=== PATIENT | male | born 1945 | race Caucasian/White ===

== ENCOUNTER 2024-11-16 19:50 | Observation (INO) | payer OTHER, SELFPAY ==
[2024-11-16] VITALS (15 sets, daily range): BP systolic 125–165; BP diastolic 69–96; BMI 26.0
[2024-11-16 09:23] LABS: Hematocrit 39.0 % (39.0-52.0); Hemoglobin 12.9 g/dL (13.0-18.0); Mean Corp Hgb Conc. 33.1 g/dL (33.0-37.0); Mean Corpuscular Volume 95.6 fL (80.0-94.0); Nucleated Red Blood Cells % 0 % (-); Platelet Count 184 10^3/uL (130-400); Red Cell Dist. Width 12.3 % (11.5-14.5)
[2024-11-16 09:49] LABS: Troponin I < 0.012 ng/ml
[2024-11-16 10:03] LABS: ALT (SGPT) 16 U/L (0-50); AST (SGOT) 19 U/L (17-59); Albumin 4.6 g/dl (3.5-5.0); Alkaline Phosphatase 71 U/L (38-126); Blood Urea Nitrogen 22 mg/dl (9-20); Calcium 10.3 mg/dl (8.4-10.2); Carbon Dioxide 27 mmol/L (22-30); Chloride 100 mmol/L (98-107); Glucose 159 mg/dl (70-99); Potassium 4.7 mmol/L (3.5-5.1); Sodium 135 mmol/L (135-145); Total Protein 7.1 g/dl (6.3-8.2); eGFR 43.56
--- NOTE | 2024-11-16 10:59 | ED.GENMED ---
History of Present Illness
<Nimco Joy DO, Resident - Last Filed: 11/17/24 06:01>
General
Chief Complaint: Chest Pain
Source: patient
Time Seen by Provider: 11/16/24 10:10
History of Present Illness
History of Present Illness:
Patient is a 78-year-old male with past medical history of kidney transplant 2014, CABG x 2 in July 2022, pericarditis about 4 years ago, hypertension hyperlipidemia and diabetes presenting with midsternal chest pain. Patient said he had abdominal
pain that started last night and and when he woke up this morning it was radiating to his chest. Patient rated the pain a 9 out of 10 on the pain scale and stated it was associated with some shortness of breath and pain on inspiration. Patient
says that he has been gassy and burping, which alleviated most of the pain. He now rates it a 2 out of 10 pain.
Past History
<Nimco Joy DO, Resident - Last Filed: 11/17/24 06:01>
Past History
ED Past Medical History: CVA (Negative for any weakness 2011), HTN, Hypercholesterolemia, NIDDM and Other (Factor V, GI bleeding,)
ED Past Surgical History: Appendectomy, Bowel resection (Colon resection for Polyps), Cholecystectomy and Other (Renal transplant, Lipoma removed from back, Bilateral nephrectomy for CA, Pancreatectomy,, Prostatectomy,)
Social History
Tobacco: Former smoker
Alcohol: Occasional
Drug: None
Personal:
Living: alone
Employment: Employed
Family History
Family History: Other (Noncontributory)
Review of Systems
<Nimco Joy DO, Resident - Last Filed: 11/17/24 06:01>
Review of Systems
Allergies reviewed?: Yes
Constitutional: Reports chills
EENT: Reports no symptoms
Respiratory: Reports no symptoms
Cardiac: Reports chest pain
ABD/GI: Reports abdominal pain
: Reports no symptoms
Musculoskeletal: Reports no symptoms
Skin: Reports no symptoms
Neurological: Reports no symptoms
Endocrine: Reports no symptoms
Hematologic/Lymphatic: Reports no symptoms
Psychiatric: Reports no symptoms
Phy Exam
<Nimco Joy DO, Resident - Last Filed: 11/17/24 06:01>
General Physical Exam
General Presentation: well appearing and no apparent distress
General Skin: cool
General Habitus: normal
General Mental: alert
Cardiovascular Exam
Cardiovascular Exam: regular rate/rhythm
Heart Sounds: normal
Pulmonary Exam
Pulmonary Exam: lungs clear and no respiratory distress
Gastrointestinal Exam
Gastrointestinal Exam: normal bowel sounds, non tender and soft
Neurological Exam
Neurological Exam: alert and oriented x3
Psychiatric Exam
Psychiatric Exam: normal mood/affect
Scores
<Nimco Joy DO, Resident - Last Filed: 11/17/24 06:01>
Heart Score for Chest Pain Patients
STEMI patient?: Not applicable
Course
<Nimco Joy DO, Resident - Last Filed: 11/17/24 06:01>
Orders/Labs/Results
Orders:
Orders
11/16/24 08:56
Electrocardiogram (*1) Urgent
Reason for Study: Chest Pain
11/16/24 08:57
EKG- Treatment ONCE
11/16/24 09:10
Complete Blood Count/With Diff Urgent
Comprehensive Metabolic Panel Urgent
Lipase Urgent
Comment: ADD ON
Troponin I Urgent
11/16/24 10:43
Add On- LAB Urgent
Tests Added?: lipase
11/16/24 11:07
EKG- Treatment ONCE
11/16/24 12:00
EKG- Treatment ONCE
11/16/24 12:01
Troponin I Urgent
11/16/24 12:04
EKG [Electrocardiogram (*1)] Urgent
Reason for Study: Chest Pain
EKG- Treatment ONCE
11/16/24 12:10
0.9% Sodium Chloride 1000 ml [Nss] 1,000 ml IV BOLUS
11/16/24 12:39
CT Abd/pel Without Iv Or Oral Urgent
Comment:
Reason For Exam: elevated lipase, hx kidney tx
11/16/24 Dinner
NPO
Allow oral meds: Yes
Allow clear liquids: Sips of Clears
NPO with Ice Chips: Yes
11/16/24 19:08
Admit/Transfer Patient As Directed
Co-Sign Provider:
Level of Care: Observation services
Assign to:: Medical/Surgical
Physician / Group: Dr. Arsh Chaudhary/Hospitalists
Diagnosis: Acute Pancreatitis
11/16/24 19:11
Code Status As Directed
Resuscitation Status: Full Code
11/16/24 19:18
Accucheck [Bedside Glucose Monitoring] As Directed
Frequency: Q6H
11/16/24 19:20
GASTROINTESTINAL CONSULT Routine
Consulting Provider: Valentine Quintanilla
Was physician already notified: Yes
Reason for consult: Acute Pancreatitis. H/o Whipple Surgery
11/16/24 19:43
0.9% Sodium Chloride 1000 ml [Nss] 1,000 ml IV 150 mls/hr
11/16/24 20:50
Atorvastatin [Lipitor] 20 mg PO QPM
Bisacodyl [Dulcolax] 10 mg RECTAL [id number] PRN
Carvedilol [Coreg] 12.5 mg PO BID
Docusate W/Senna [Senokot-S] 1 tablet PO BIDPRN PRN
Famotidine [Pepcid] 20 mg PO QPM
HYDROmorphone [Dilaudid] 0.5 mg IV Q4HPRN PRN
Heparin 5,000 units SC Q12
Polyethylene Glycol Powder [Miralax] 17 grams PO DAILYPRN PRN
Potassium Citrate [Urocit-K] 10 meq PO BID
Tacrolimus [Prograf] 0.5 mg PO BID
magnesium citrate 400 mg PO BID
11/16/24 20:50
Activity As Directed
Activity Level: As Tolerated
Intake/ Output As Directed
Frequency: q12h
Pneumatic Compression Sleeves As Directed
Type: Knee high
Vital Signs As Directed
Frequency: Per unit guidelines
DX Deep Vein Thrombosis Video Routine
11/16/24 21:48
Troponin I Q6H
11/16/24 22:00
Clonazepam [Klonopin] 1.5 mg PO HS
Ferrous Sulfate [Feosol] 325 mg PO HS
Lactobac/Bifidobac [Visbiome] 1 cap PO Q48H
Mycophenolate [Cellcept] 250 mg PO BID
11/17/24 04:20
Complete Blood Count/No Diff IN AM
Comprehensive Metabolic Panel IN AM
Magnesium IN AM
Troponin I Q6H
11/17/24 08:00
Aspirin Chewable [Low Strength Aspirin] 81 mg PO DAILY
Niaminicide 500 mg PO DAILY
Prednisone [Deltasone] 5 mg PO DAILY
11/17/24 08:50
Troponin I Q6H
11/17/24 10:00
Sodium Zirconium Cyclosilicate [Lokelma] 10 gram PO Q48H
11/17/24 12:00
Cinacalcet HCl [Sensipar] 30 mg PO DAILY@1200
11/18/24 06:00
Complete Blood Count/No Diff IN AM
Comprehensive Metabolic Panel IN AM
11/19/24 06:00
Complete Blood Count/No Diff IN AM
Comprehensive Metabolic Panel IN AM
11/20/24 06:00
Complete Blood Count/No Diff IN AM
Comprehensive Metabolic Panel IN AM
Abnormal Lab Results
11/16/24 11/16/24
09:10 19:37
WBC 11.8 H 10^3/uL
(4.8-10.8)
RBC 4.08 L 10^6/uL
(4.70-6.10)
Hgb 12.9 L g/dL
(13.0-18.0)
MCV 95.6 H fL
(80.0-94.0)
MCH 31.6 H pg
(27.0-31.0)
Absolute Neuts (auto) 9.0 H 10^3/uL
(1.4-6.5)
Absolute Monos (auto) 1.1 H 10^3/uL
(0.1-0.6)
Neutrophils % 76.9 H %
(42.2-75.2)
Lymphocytes % 11.2 L %
(20.5-51.1)
BUN 22 H mg/dl
(9-20)
Creatinine 1.6 H mg/dL
(0.7-1.3)
Glucose 159 H mg/dl
(70-99)
Calcium 10.3 H mg/dl
(8.4-10.2)
Lipase 1879 H* U/L
(23-300)
POC Glucose 156 H mg/dl
(70-99)
11/16/24 09:10
11/16/24 09:10
Vital Signs
Initial and Last Documented VS:
Initial Vital Signs
Temp Pulse Resp BP Pulse Ox
98.1 F 85 18 125/75 96
11/16/24 08:58 11/16/24 08:58 11/16/24 08:58 11/16/24 08:58 11/16/24 08:58
Last Documented Vital Signs
Temp Pulse Resp BP Pulse Ox
98.3 F 63 18 137/69 98
11/16/24 23:00 11/16/24 23:00 11/16/24 23:00 11/16/24 23:00 11/16/24 23:00
<Nela Meredithmaria t, DO - Last Filed: 11/16/24 12:11>
Orders/Labs/Results
Orders:
Orders
11/16/24 08:56
Electrocardiogram (*1) Urgent
Reason for Study: Chest Pain
11/16/24 08:57
EKG- Treatment ONCE
11/16/24 09:10
Complete Blood Count/With Diff Urgent
Comprehensive Metabolic Panel Urgent
Lipase Urgent
Comment: ADD ON
Troponin I Urgent
11/16/24 10:43
Add On- LAB Urgent
Tests Added?: lipase
11/16/24 11:07
EKG- Treatment ONCE
11/16/24 12:00
EKG- Treatment ONCE
11/16/24 12:01
Troponin I Urgent
11/16/24 12:04
EKG [Electrocardiogram (*1)] Urgent
Reason for Study: Chest Pain
EKG- Treatment ONCE
11/16/24 12:10
0.9% Sodium Chloride 1000 ml [Nss] 1,000 ml IV BOLUS
11/16/24 12:39
CT Abd/pel Without Iv Or Oral Urgent
Comment:
Reason For Exam: elevated lipase, hx kidney tx
11/16/24 Dinner
NPO
Allow oral meds: Yes
Allow clear liquids: Sips of Clears
NPO with Ice Chips: Yes
11/16/24 19:08
Admit/Transfer Patient As Directed
Co-Sign Provider:
Level of Care: Observation services
Assign to:: Medical/Surgical
Physician / Group: Dr. Arsh Chaudhary/Hospitalists
Diagnosis: Acute Pancreatitis
11/16/24 19:11
Code Status As Directed
Resuscitation Status: Full Code
11/16/24 19:18
Accucheck [Bedside Glucose Monitoring] As Directed
Frequency: Q6H
11/16/24 19:20
GASTROINTESTINAL CONSULT Routine
Consulting Provider: Valentine Quintanilla
Was physician already notified: Yes
Reason for consult: Acute Pancreatitis. H/o Whipple Surgery
11/16/24 19:43
0.9% Sodium Chloride 1000 ml [Nss] 1,000 ml IV 150 mls/hr
11/16/24 20:50
Atorvastatin [Lipitor] 20 mg PO QPM
Bisacodyl [Dulcolax] 10 mg RECTAL [id number] PRN
Carvedilol [Coreg] 12.5 mg PO BID
Docusate W/Senna [Senokot-S] 1 tablet PO BIDPRN PRN
Famotidine [Pepcid] 20 mg PO QPM
HYDROmorphone [Dilaudid] 0.5 mg IV Q4HPRN PRN
Heparin 5,000 units SC Q12
Polyethylene Glycol Powder [Miralax] 17 grams PO DAILYPRN PRN
Potassium Citrate [Urocit-K] 10 meq PO BID
Tacrolimus [Prograf] 0.5 mg PO BID
magnesium citrate 400 mg PO BID
11/16/24 20:50
Activity As Directed
Activity Level: As Tolerated
Intake/ Output As Directed
Frequency: q12h
Pneumatic Compression Sleeves As Directed
Type: Knee high
Vital Signs As Directed
Frequency: Per unit guidelines
DX Deep Vein Thrombosis Video Routine
11/16/24 21:48
Troponin I Q6H
11/16/24 22:00
Clonazepam [Klonopin] 1.5 mg PO HS
Ferrous Sulfate [Feosol] 325 mg PO HS
Lactobac/Bifidobac [Visbiome] 1 cap PO Q48H
Mycophenolate [Cellcept] 250 mg PO BID
11/17/24 04:20
Complete Blood Count/No Diff IN AM
Comprehensive Metabolic Panel IN AM
Magnesium IN AM
Troponin I Q6H
11/17/24 08:00
Aspirin Chewable [Low Strength Aspirin] 81 mg PO DAILY
Niaminicide 500 mg PO DAILY
Prednisone [Deltasone] 5 mg PO DAILY
11/17/24 08:50
Troponin I Q6H
11/17/24 10:00
Sodium Zirconium Cyclosilicate [Lokelma] 10 gram PO Q48H
11/17/24 12:00
Cinacalcet HCl [Sensipar] 30 mg PO DAILY@1200
11/18/24 06:00
Complete Blood Count/No Diff IN AM
Comprehensive Metabolic Panel IN AM
11/19/24 06:00
Complete Blood Count/No Diff IN AM
Comprehensive Metabolic Panel IN AM
11/20/24 06:00
Complete Blood Count/No Diff IN AM
Comprehensive Metabolic Panel IN AM
Abnormal Lab Results
11/16/24 11/16/24
09:10 19:37
WBC 11.8 H 10^3/uL
(4.8-10.8)
RBC 4.08 L 10^6/uL
(4.70-6.10)
Hgb 12.9 L g/dL
(13.0-18.0)
MCV 95.6 H fL
(80.0-94.0)
MCH 31.6 H pg
(27.0-31.0)
Absolute Neuts (auto) 9.0 H 10^3/uL
(1.4-6.5)
Absolute Monos (auto) 1.1 H 10^3/uL
(0.1-0.6)
Neutrophils % 76.9 H %
(42.2-75.2)
Lymphocytes % 11.2 L %
(20.5-51.1)
BUN 22 H mg/dl
(9-20)
Creatinine 1.6 H mg/dL
(0.7-1.3)
Glucose 159 H mg/dl
(70-99)
Calcium 10.3 H mg/dl
(8.4-10.2)
Lipase 1879 H* U/L
(23-300)
POC Glucose 156 H mg/dl
(70-99)
11/16/24 09:10
11/16/24 09:10
Vital Signs
Initial and Last Documented VS:
Initial Vital Signs
Temp Pulse Resp BP Pulse Ox
98.1 F 85 18 125/75 96
11/16/24 08:58 11/16/24 08:58 11/16/24 08:58 11/16/24 08:58 11/16/24 08:58
Last Documented Vital Signs
Temp Pulse Resp BP Pulse Ox
98.3 F 63 18 137/69 98
11/16/24 23:00 11/16/24 23:00 11/16/24 23:00 11/16/24 23:00 11/16/24 23:00
<Nimco Joy DO, Resident - Last Filed: 11/17/24 06:01>
MDM/Problems Addressed
Differential Diagnosis Includes:
Pancreatitis
MDM/Problems Addressed:
Patient's EKG showed normal sinus rhythm with right bundle branch block, mostly unchanged from prior EKG. Troponin also negative. Given the fact this patient is high risk we will do a repeat EKG and troponin at 3 hours.
12:00 repeat EKG shows normal sinus rhythm right bundle branch block, unchanged. Repeat troponin negative. Patient's lipase is 1879. Will send patient for CT abdomen pelvis.
4:17 CT abdomen pelvis without contrast due to prior kidney transplant, which showed no acute findings although there was limited evaluation of the pancreas in the absence of contrast
<Nimco Joy DO, Resident - Last Filed: 11/17/24 06:01>
*Pulse Oximetry
SaO2: 92
Oxygen Mode of Delivery: Room air
Patient hypoxic: no
*Critical Care Note
Total Time (30-74mins, 75-104mins- exclusive of procedures): Not Applicable
ED Attending Note
<Nimco Joy DO, Resident - Last Filed: 11/17/24 06:01>
-
Portions of this chart may have been created with voice recognition software.� Occasional wrong word or��sound alike� substitutions may have occurred due to the inherent limitations of voice recognition software.
<Nela Pollock DO - Last Filed: 11/16/24 12:11>
ED Attending Note
Patient seen and examined by attending physician: Yes
I performed the substantive portion of visit, reviewed & personally made and approve the management plan that is documented in note by myself or ABBIE.: Yes
I performed a history and physical exam of patient and discussed management with resident, I reviewed resident's note and agree with documented findings and plan of care.: Yes
ED Attending Note:
78-year-old male with history of hypertension, hyperlipidemia, CABG, pericarditis, kidney transplant presenting for chest pain. Patient reports last evening he was having upper abdominal discomfort and then throughout the night, progressed to chest
discomfort. Notes that he has had a lot of belching and burping and since then his pain has somewhat improved. Denies fever or cough. Denies any vomiting. Denies any difficulty breathing. Vital signs are normal.
On exam, patient resting comfortably, no acute distress or discomfort. EKG obtained on arrival is sinus rhythm with a right bundle branch block, unchanged from prior EKG. Unremarkable cardiac and pulmonary exam, patient notes that his symptoms are
improved, continues to have belching. Ultimately suspect gastric component given symptoms, improving pain, reassuring EKG. Patient had laboratory analysis obtained prior to my assessment, undetectable troponin. However given patient's cardiac
risk factors, will plan for repeat troponin and EKG.
12:10 -lipase was added to laboratory analysis, elevated to nearly 2000. Suspected source patient's symptoms. Plan for CT imaging
Discharge Plan
Departure
Patient Disposition: Admit
Date of Disposition: 11/16/24
Time of Disposition: 16:19
Presentation/result/management discussed w/ accepting MD/DO: Hospitalist
Patient with high blood pressure during this ER visit?: Yes
Discharge Problem:
Pancreatitis, acute
Interventions
Interventions:
*Risk Screen - Suicide Last Done: 11/16/24 08:58
*General Assessment Last Done: 11/16/24 08:58
*Neglect/Abuse Screening Last Done: 11/16/24 08:58
*ED- Fall Risk Assessment Last Done: 11/16/24 21:00
*ED COVID-19 Vaccine History Last Done: 11/16/24 21:10
*Nursing Disposition Last Done: 11/16/24 21:00
ED- Cardiac Assessment Last Done: 11/16/24 20:00
Discharge Date and Time
Discharge Date/Time: 11/16/24 21:00
[2024-11-16 12:01] LABS: Lipase 1879 U/L (23-300)
[2024-11-16 12:36] LABS: Troponin I < 0.012 ng/ml
[2024-11-16] MEDS: NSS 1000 IV ×2 (14:32→20:03)
--- NOTE | 2024-11-16 17:06 | HPS.HSE ---
Family Physician
-
Family Physician: Darek Dallas
Chief Complaint
-
Abdominal and Chest Pain
History of Present Illness
78 y/o male with past medical history of CAD s/p CABG, NSTEMI, CVA, history of possible pericarditis, recurrent GI bleeds (history of multiple colonic polyps and sigmoid resection and s/p modified Whipple procedure with unusual anatomy that is
believed to cause recurrent GI bleeding), hyperlipidemia, end-stage renal disease treated successfully with renal transplantation in 2014, recurrent UTI maintained on doxycycline, bilateral renal cell carcinoma status post bilateral nephrectomy
presented with mid to upper abdominal pain, going up to his chest. Patient said his pain subsided after burping/bleching and avoiding PO intake. He denied any other complaints.
Medical History
Past Medical History
Past Medical History: Reports Other (As per HPI above)
Past Surgical History: Reports Other (Appendectomy. Cholecystectomy. Kidney Tx 2014. Modified Whipple-for unusual anatomy that was believed to cause recurrent GI bleeding. Bowel resection (Colon resection for Polyps). Cholecystectomy. Bilateral
nephrectomy for renal cancer. Lipoma on back removal. Prostatectomy 2009.Pancreatectomy)
Social History
Tobacco: Former Smoker
Alcohol: None
Drug: None
Family History
Family History: Not pertinent
Allergies / Home Medications
Allergies reflects when Allergies were last updated in [facility].
Home Medications with original date entered in [facility]
Allergy/Medication List:
Allergies
Allergy/AdvReac Type Severity Reaction Status Date / Time
no dyes Allergy Unknown Uncoded 07/07/22 19:15
Home Medications
cinacalcet 30 mg tablet 30 mg PO DAILY@1200 Hyperparathyroidism 03/05/16
mycophenolate mofetil 500 mg tablet 250 mg PO BID Transplant 04/23/16
prednisone 5 mg tablet 5 mg PO DAILY Transplant 04/23/16
tacrolimus 0.5 mg capsule, immediate-release 0.5 mg PO BID Transplant 01/16/17
Niaminicide 500 mg PO DAILY Supplement 09/12/16
famotidine 20 mg tablet 20 mg PO QPM Gastrointestinal issue 03/13/19
potassium citrate 10 mEq (1,080 mg) tablet,extended release 10 meq PO BID 07/11/22
aspirin 81 mg chewable tablet 81 mg PO DAILY #0 tabs 07/15/22
Bacillus coagulans 250 million cell chewable tablet (Digestive Advantage Immune) 250 mmu cells PO Q48H 11/16/24
atorvastatin 20 mg tablet (Lipitor) 20 mg PO QPM 11/16/24
carvedilol 12.5 mg tablet (Coreg) 12.5 mg PO BID 11/16/24
clonazepam 0.5 mg tablet 1.5 mg PO HS 11/16/24
glipizide 5 mg tablet, extended release 24 hr 5 mg PO BID@1700,2200 11/16/24
magnesium citrate 125 mg capsule 400 mg PO BID 11/16/24
metformin 500 mg tablet,extended release 24 hr 500 mg PO BID 11/16/24
sodium zirconium cyclosilicate 10 gram oral powder packet (Lokelma) 10 g PO Q48H 11/16/24
Review of Systems
-
A 12 point ROS was completed and negative except as noted: Yes
Physical Exam
Vital Signs
Vital Signs
Temp Pulse Resp BP Pulse Ox
98.1 F 80 20 144/69 92
11/16/24 08:58 11/16/24 12:26 11/16/24 10:56 11/16/24 10:55 11/16/24 11:01
Physical Exam
General: No Apparent Distress, Comfortable and Conversant
HEENT: NormoCephalic and Moist mucous membranes
Respiratory: Clear
Cardiac: S1/S2 and Regular Rhythm
GI: Soft, Normal Bowel Sounds and Tender (Mild, in the mid abdomen bilaterally)
Musculoskeletal: No Cyanosis and No Edema
Skin: Warm and Dry
Neuro: Awake, Alert, AO x 3 and Nonfocal/grossly intact
Psych: Calm and Intact Judgment/Insight
Laboratory Results
-
11/16/24 09:10
11/16/24 09:10
Laboratory Results
Total Bilirubin 1.0 mg/dl (0.2-1.3) 11/16/24 09:10
AST 19 U/L (17-59) 11/16/24 09:10
ALT 16 U/L (0-50) 11/16/24 09:10
Alkaline Phosphatase 71 U/L (38-126) 11/16/24 09:10
Troponin I < 0.012 ng/ml 11/16/24 12:01
Lipase 1879 U/L (23-300) H* 11/16/24 09:10
Impression/Plan
-
Assessment/Plan
Presentation with Upper Abdominal Pain Radiating to the Chest -- pain improved after a lot of belching and burping
High Lipase
Suspected Acute Pancreatitis
-Per patient, no fever, cough, shortness of breath or vomiting
-Normal Saline IV fluids at 150 cc/hr given that serum calcium is on the higher side/around the upper limit of normal
-NPO except meds and sips of clears/ice chips
-Pain control prn
-Given patient's complex abdominal surgeries including pancreatectomy, will consult gastroenterology
-Continue to trend troponins -- today, I discussed with Dr. Mazariegos (insole lip turner) and this is very unlikely to be acute coronary syndrome given unrevealing troponins and EKGs -- continue to trend troponins
History of CAD s/p CABG
History of NSTEMI
History of CVA
-Continue Aspirin, Statin, Coreg
-AVOID NSAIDs
Type 2 Diabetes Mellitus
-Hold home oral medications
-Low dose sliding scale
History of pericarditis
Recurrent GI bleeds (history of multiple colonic polyps and sigmoid resection and s/p modified Whipple procedure with unusual anatomy that is believed to cause recurrent GI bleeding)
Hyperlipidemia
-Continue home statin
End-stage renal disease treated successfully with renal transplantation in 2014
-Continue Prednisone, Tacrolimus, and Mycophenolate Mofetil
-AVOID NSAIDS
-AVOID IODINATED CONTRAST
Recurrent UTIs maintained on doxycycline
Bilateral renal cell carcinoma status post bilateral nephrectomy
Appendectomy
Cholecystectomy
Modified Whipple-for unusual anatomy that was believed to cause recurrent GI bleeding
Bowel resection (Colon resection for Polyps)
Lipoma on back removal
Prostatectomy 2009
Pancreatectomy
Atelectasis
-Continue incentive spirometer
DVT Prophylaxis: Heparin subq
Code Status: Full Code
[2024-11-16 19:39] LABS: Glucose - Point of Care 156 mg/dl (70-99)
--- NOTE | 2024-11-16 21:10 | PTCARENOTE ---
Pt arrived to unit from ED via stretcher. Ambulated from stretcher to bed. A&Ox3. NSS running at 150 ml/hr maintained. Pt oriented to unit. Call payton within reach. Plan of care ongoing.
[2024-11-16] MEDS: UROCIT-K PO (21:23)
[2024-11-16] MEDS: HEPARIN 5000 UNITS SC (22:15)
[2024-11-16] MEDS: LIPITOR 20 MG PO (22:17)
[2024-11-16] MEDS: PROGRAF 0.5 MG PO (22:17)
[2024-11-16] MEDS: CELLCEPT 250 MG PO (22:18)
[2024-11-16 22:20] LABS: Troponin I < 0.012 ng/ml
[2024-11-16] MEDS: KLONOPIN 1.5 MG PO (22:20)
[2024-11-17] MEDS: NSS 1000 IV ×2 (03:12→10:37)
[2024-11-17 04:39] LABS: Hematocrit 32.0 % (39.0-52.0); Hemoglobin 10.6 g/dL (13.0-18.0); Mean Corp Hgb Conc. 33.1 g/dL (33.0-37.0); Mean Corpuscular Volume 95.2 fL (80.0-94.0); Platelet Count 140 10^3/uL (130-400); Red Cell Dist. Width 12.7 % (11.5-14.5)
[2024-11-17 05:10] LABS: Troponin I < 0.012 ng/ml
[2024-11-17 05:24] LABS: ALT (SGPT) 11 U/L (0-50); AST (SGOT) 17 U/L (17-59); Albumin 3.6 g/dl (3.5-5.0); Alkaline Phosphatase 53 U/L (38-126); Blood Urea Nitrogen 21 mg/dl (9-20); Calcium 9.2 mg/dl (8.4-10.2); Carbon Dioxide 22 mmol/L (22-30); Chloride 107 mmol/L (98-107); Estimated Creatinine Clearance 43 ml/min; Glucose 95 mg/dl (70-99); Magnesium 2.0 mg/dl (1.6-2.3); Potassium 4.8 mmol/L (3.5-5.1); Sodium 135 mmol/L (135-145); Total Protein 5.7 g/dl (6.3-8.2); eGFR 51.13
[2024-11-17 06:00] VITALS: BMI 26.0
[2024-11-17 07:30] VITALS: BP 148/75
[2024-11-17 08:12] LABS: Glycohemoglobin (HgbA1c) 7.5 % (4.0-5.6)
[2024-11-17] MEDS: DELTASONE 5 MG PO (08:12)
[2024-11-17] MEDS: UROCIT-K 10 MEQ PO (08:13)
[2024-11-17] MEDS: CELLCEPT 250 MG PO (08:13)
[2024-11-17] MEDS: LOW STRENGTH ASPIRIN 81 MG PO (08:13)
[2024-11-17] MEDS: PROGRAF 0.5 MG PO (08:13)
[2024-11-17] MEDS: HEPARIN 5000 UNITS SC (08:14)
[2024-11-17 08:22] LABS: Glucose - Point of Care 92 mg/dl (70-99)
--- NOTE | 2024-11-17 09:09 | CON.GI ---
Addendum entered and electronically signed by Valentine Quintanilla MD 11/17/24 11:06:
I personally performed a history and physical exam of the patient and discussed management with the resident. I reviewed the resident's note and agree with the documented findings and plan of care HPI/CC.
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 he also has a hx of renal transplant. He was admitted with upper abdominal pain and chest pain, lipase at 1800. A non contrast CT
did not show pancreatitis. His f/u lipase is in high 400s. His pain has resolved.
abd: soft nontender
impression:
pancreatitis, appearing to resolve quickly
abd pain, resolved
plan:
did get IVF resuscitation
low fat diet
if symptoms worsen then need to consider better imaging (only non contrast CT)
if symptoms resolve would have him f/u at [facility] for ongoing evaluation and pt does have MRI scheduled there
Original Note:
Consultation
-
Date/Time Consultation Requested: 11/16/2024 19:20
Date/Time Consultation Performed: 11/17/2024 07:30
Requesting Provider: Arsh Chaudhary MD
Performing Provider: Corey Osborne DO (Resident); Yeimy Quintanilla MD
Reason for Consultation: Acute Pancreatitis, Hx of Modified Whipple's
Medical History
Chief Complaint / HPI
Chief Complaint: Abdominal Pain
History of Present Illness:
Rony Haji is a 78M with a PMHx of CVA, HTN, HLD, NIDDM, peridcarditis, hyperparathyroidism and a PSHx of appendectomy, cholecystectomy, renal transplant (2014), b/l nephrectomy, IPMN, modified Whipple procedure in the setting of pancreatic
cysts, prostatectomy and CABG x 2 who is presenting with abdominal pain.
Patient states that the pain started on the evening of 11/15, approximately 36 hours ago. At that time, the location of the pain was in the umbilical area and was a 3/10 in severity. He denies any other symptoms at that time and he was able to go to
sleep. Patient woke up yesterday morning with pain located in the upper abdomen with radiation to the chest and was rated at a 8/10. Patient describes the pain as pressure-like in the chest, and sharp in the abdomen. He denies nausea, vomiting,
diarrhea, constipation, changes in bowels, during this time course. Patient does note that he felt short of breath by the time he had presented himself to the emergency department, particularly with deep breathing. Patient denies trying over the
counter medications at home to alleviate the pain. He does note however, that he is able to make himself burp, and that repeatedly doing so he was able to alleviate much of the pain. He denies sick contacts, recent travel, or recent illness.
ED Course: WBC 11.8, BUN 22, Cr 1.6, Ca 10.3, LFTs WNL, Lipase 1879, patient afebrile with stable vital signs and negative physical examination. CT Abd/Pelv without acute findings, obstruction, herniation, peripancreatic stranding, or
hydronephrosis.
Patient states that he is feeling much better this morning. By last night, with fluid and burping, his pain is now down to a 1 out of 10 and progressively improving. He has not required analgesics to this point.
Past Medical History
Past Medical History: Other (CVA, HTN, HLD, NIDDM, Factor V Leiden, peridcarditis, hyperparathyroidism)
Past Surgical History: Other (appendectomy, cholecystectomy, renal transplant (2015), b/l nephrectomy, modified Whipple procedure in the setting of recurrent GI bleeding, prostatectomy and CABG x 2)
Social History
Tobacco: Former Smoker (quit 45 years ago)
Alcohol: Occasional (notes approximately 5 total drinks this year to date)
Drug: None
Personal: Other ()
Living: Alone
Family History
Family History: Other (No family history of colon cancers, no family history of IBD. )
Allergies / Home Medications
Allergy/AdvReac Type Severity Reaction Status Date / Time
no dyes Allergy Unknown Uncoded 07/07/22 19:15
�Medication �Instructions �Recorded
cinacalcet 30 mg tablet 30 mg PO DAILY@1200 03/05/16
Hyperparathyroidism
mycophenolate mofetil 500 mg tablet 250 mg PO BID Transplant 04/23/16
prednisone 5 mg tablet 5 mg PO DAILY Transplant 04/23/16
tacrolimus 0.5 mg capsule, 0.5 mg PO BID Transplant 04/23/16
immediate-release
Niaminicide 500 mg PO DAILY Supplement 09/12/16
famotidine 20 mg tablet 20 mg PO QPM Gastrointestinal issue 03/13/19
potassium citrate 10 mEq (1,080 10 meq PO BID 07/11/22
mg) tablet,extended release
aspirin 81 mg chewable tablet 81 mg PO DAILY #0 tabs 07/15/22
Bacillus coagulans 250 million 250 mmu cells PO Q48H 11/16/24
cell chewable tablet (Digestive
Advantage Immune)
atorvastatin 20 mg tablet (Lipitor) 20 mg PO QPM 11/16/24
azelastine 137 mcg (0.1 %) nasal 1 spray intranasal BIDPRN PRN 11/16/24
spray alleriges
carvedilol 12.5 mg tablet (Coreg) 12.5 mg PO BID 11/16/24
clonazepam 0.5 mg tablet 1.5 mg PO HS 11/16/24
doxycycline hyclate 100 mg tablet 100 mg PO DAILY@1200 halfway 11/16/24
ferrous sulfate 325 mg (65 mg 325 mg PO QPM 11/16/24
iron) tablet
glipizide 5 mg tablet, extended 5 mg PO BID@1700,2200 11/16/24
release 24 hr
magnesium citrate 125 mg capsule 400 mg PO BID 11/16/24
metformin 500 mg tablet,extended 500 mg PO BID 11/16/24
release 24 hr
sodium zirconium cyclosilicate 10 10 g PO Q48H@2200 11/16/24
gram oral powder packet (Lokelma)
Review of Systems
-
History Source: Patient
All other systems: A 12 pt ROS was Negative except as stated above in HPI
Vital Signs
Temp Pulse Resp BP Pulse Ox
97.9 F 53 16 148/75 98
11/17/24 07:30 11/17/24 08:13 11/17/24 07:30 11/17/24 08:13 11/17/24 07:30
Physical Exam
Exam
General: Well Developed, Well Nourished, No Apparent Distress and Comfortable
HEENT: Normocephalic and Anicteric
Respiratory: Non Labored Respirations
Cardiac: S1/S2 and Regular Rhythm
GI: Soft, Non Distended, Normal Bowel Sounds and Other (minimal tenderness in the LUQ, otherwise NTTP)
Skin: Warm
Neuro: Awake
Psych: Calm
Results
WBC 6.8 10^3/uL (4.8-10.8) 11/17/24 04:20
Hgb 10.6 g/dL (13.0-18.0) L 11/17/24 04:20
Hct 32.0 % (39.0-52.0) L 11/17/24 04:20
MCV 95.2 fL (80.0-94.0) H 11/17/24 04:20
Plt Count 140 10^3/uL (130-400) D 11/17/24 04:20
Absolute Neuts (auto) 9.0 10^3/uL (1.4-6.5) H 11/16/24 09:10
Sodium 135 mmol/L (135-145) 11/17/24 04:20
Potassium 4.8 mmol/L (3.5-5.1) 11/17/24 04:20
Chloride 107 mmol/L (98-107) 11/17/24 04:20
Carbon Dioxide 22 mmol/L (22-30) 11/17/24 04:20
BUN 21 mg/dl (9-20) H 11/17/24 04:20
Creatinine 1.4 mg/dL (0.7-1.3) H 11/17/24 04:20
Calcium 9.2 mg/dl (8.4-10.2) 11/17/24 04:20
Total Bilirubin 1.1 mg/dl (0.2-1.3) 11/17/24 04:20
AST 17 U/L (17-59) 11/17/24 04:20
ALT 11 U/L (0-50) 11/17/24 04:20
Alkaline Phosphatase 53 U/L (38-126) 11/17/24 04:20
Lipase 1879 U/L (23-300) H* 11/16/24 09:10
CT Abd/Pelv (11/16):
1. No acute findings appreciated.
2. Multiple prior intra-abdominal surgeries. No gross evidence for obstruction or internal hernia.
3. No peripancreatic fluid collections or stranding. Limited evaluation of the pancreas in the absence of IV contrast.
4. Status post bilateral nephrectomies. Renal allograft within the right iliac fossa. No hydronephrosis.
5. Additional findings above.
Assessment / Plan
-
Rony Haji is a 78M with a PMHx of modified Whipple procedure in the setting of recurrent GI bleeding, as well as bilateral nephrectomy, renal transplantation, bowel resection, cholecystectomy, appendectomy, hyperlipidemia, and
hyperparathyroidism who presented to the ED on 11/16 with abdominal pain radiating to the chest. Normal LFTs but lipase 1879 on admission. Troponins have been negative x 4. Non-contrast CT abdomen and pelvis was without acute findings. Mild
leukocytosis on admission that has now normalized. Mild JODI on admission that is improving. Patient has so far received approximately 3L of fluid resuscitation with marked improvement in subjective pain without administration of analgesics. Given
the absence of findings and patient's clinical improvement, this most likely represents an idiopathic pancreatitis.
Other potential etiologies include gallstone pancreatitis, though LFTs do not indicate an obstructive pattern, medication induced pancreatitis, though there have been no recent changes to patient's medication history, or pancreatitis secondary to
pancreatic cysts. Patient does have a history of IPMN for which he is being followed at [facility] with an MRI that is scheduled some time this month.
ERCP or other GI interventions are likely not indicated at this time. We will repeat a lipase this AM to monitor and continue to follow for symptomatic improvement.
Data Reviewed
-
CT Scan: Image Personally Visualized and interpreted, Report Reviewed by me and Discussed with Patient
-
-
Thank you for consultation and allowing me to participate in the patient's care. Please call the preparation operator GI physician during the after hours with any questions or concerns.
[2024-11-17 10:10] LABS: Lipase 484 U/L (23-300)
--- NOTE | 2024-11-17 10:28 | W.PN.HOSP.TC ---
Today's Communication/Plan
-
Discharge today
Assessment / Plan
Assessment / Plan
Physical Exam
General: No Apparent Distress, Comfortable and Conversant
HEENT: Normocephalic and Moist mucous membranes
Respiratory: Clear to Auscultation Bilaterally
Cardiac: S1/S2 and Regular Rhythm
GI: Soft, Normal Bowel Sounds and Nontender
Musculoskeletal: No Cyanosis and No Edema
Skin: Warm and Dry
Neuro: Awake, Alert, AO x 3 and Nonfocal/grossly intact
Psych: Calm and Intact Judgment/Insight
Assessment/Plan
Presentation with Upper Abdominal Pain Radiating to the Chest -- pain improved after a lot of belching and burping
High Lipase
Suspected Acute Pancreatitis
-Patient today reported that his symptoms have completely resolved
-Per patient, no fever, cough, shortness of breath or vomiting
-Normal Saline IV fluids at 150 cc/hr was started given that serum calcium is on the higher side/around the upper limit of normal
-Okay to advance to low fat diet
-Given patient's complex abdominal surgeries including pancreatectomy, consulted gastroenterology --> according to them, no further workup needed, and patient can be discharged today
- I discussed with Dr. Mazariegos (tile trimmer) and this is very unlikely to be acute coronary syndrome given unrevealing troponins and EKGs -- several troponins have been negative
History of CAD s/p CABG
History of NSTEMI
History of CVA
-Continue Aspirin, Statin, Coreg
-AVOID NSAIDs
Type 2 Diabetes Mellitus
-Hold home oral medications
-Low dose sliding scale
History of pericarditis
Recurrent GI bleeds (history of multiple colonic polyps and sigmoid resection and s/p modified Whipple procedure with unusual anatomy that is believed to cause recurrent GI bleeding)
Hyperlipidemia
-Continue home statin
End-stage renal disease treated successfully with renal transplantation in 2014
-Continue Prednisone, Tacrolimus, and Mycophenolate Mofetil
-AVOID NSAIDS
-AVOID IODINATED CONTRAST
Recurrent UTIs maintained on doxycycline
Bilateral renal cell carcinoma status post bilateral nephrectomy
Appendectomy
Cholecystectomy
Modified Whipple-for unusual anatomy that was believed to cause recurrent GI bleeding
Bowel resection (Colon resection for Polyps)
Lipoma on back removal
Prostatectomy 2009
Pancreatectomy
Atelectasis
-Continue incentive spirometer
DVT Prophylaxis: Heparin subq
Code Status: Full Code
More than 30 minutes spent in discharge including
Final examination of the patient
Summarizing hospital stay
Instructions for continuing care to all relevant caregivers
Preparation of discharge records, prescriptions, and referral forms
Total time spent (in minutes): 37
Anticipated Discharge: Today
Subjective/Interval History
-
Date of Service: November 17, 2024
Patient was seen and examined. He denied any abdominal pain, nausea or vomiting. He would like to go home today.
Objective Data
-
Labs:
Laboratory Results
11/17/24
04:20
WBC 6.8
Hgb 10.6 L
Hct 32.0 L
Plt Count 140 D
Sodium 135
Potassium 4.8
Chloride 107
Carbon Dioxide 22
BUN 21 H
Creatinine 1.4 H
Glucose 95
Calcium 9.2
Total Bilirubin 1.1
AST 17
ALT 11
Alkaline Phosphatase 53
Vital Signs:
Vital Signs
Temp Pulse Resp BP Pulse Ox
97.9 F 53 16 148/75 98
11/17/24 07:30 11/17/24 08:13 11/17/24 07:30 11/17/24 08:13 11/17/24 07:30
--- NOTE | 2024-11-17 11:17 | CM ---
Patient seen bedside, IA completed.
Patient lives alone in a 2 story home with 2 steps to enter.
Independent prior to admission without assistive device.
Patient drives.
Patient will transport himself home.
[facility] form reviewed verbally and copy provided to patient.
Patient has been to outpatient cardiac rehab in the past, had VN in the remote past.
Patient aware of CM availability if d.c needs arise.
Patient anticipates dc home today,
PCP:B[facility]
Pharmacy: [facility]
Plan: home no needs anticipated.
[2024-11-17] MEDS: VIBRAMYCIN 100 MG PO (11:34)
[2024-11-17] MEDS: SENSIPAR 30 MG PO (11:34)
[2024-11-17 11:46] LABS: Glucose - Point of Care 92 mg/dl (70-99)
--- NOTE | 2024-11-17 13:51 | W.DCSUMMARY ---
Discharge Summary
Discharge Data
Date of Admission: 11/16/24
Date of Discharge: 11/17/24
Total time spent discharging patient (in min): 37
-
Pending Results: No
Hospital Course
78 y/o male with past medical history of CAD s/p CABG, NSTEMI, CVA, history of possible pericarditis, recurrent GI bleeds (history of multiple colonic polyps and sigmoid resection and s/p modified Whipple procedure with unusual anatomy that is
believed to cause recurrent GI bleeding), Whipple Surgery, Pancreatectomy, hyperlipidemia, end-stage renal disease treated successfully with renal transplantation in 2014, recurrent UTI maintained on doxycycline, bilateral renal cell carcinoma
status post bilateral nephrectomy presented with mid to upper abdominal pain, going up to his chest. Patient said his pain subsided after burping/bleching and avoiding PO intake. Patient was found to have significantly elevated Lipase and was
diagnosed with acute pancreatitis. He was started on intravenous fluids and his pain resolved with the IV fluids and bowel rest. He was able to tolerated a diet and stable for discharge. Gastroenterology was consulted given his complicated history
involving surgery in his abdomen, and from their standpoint there was nothing further to do as patient tolerated his diet and was back to normal.
Discharge Plan
-
Patient Disposition: Home (Routine Discharge)
Discharge Diagnosis/Procedures: Presentation with Upper Abdominal Pain Radiating to the Chest -- pain improved after a lot of belching and burping
High Lipase
Suspected Acute Pancreatitis
History of CAD s/p CABG
History of NSTEMI
History of CVA
Type 2 Diabetes Mellitus
History of pericarditis
Recurrent GI bleeds (history of multiple colonic polyps and sigmoid resection and s/p modified Whipple procedure with unusual anatomy that is believed to cause recurrent GI bleeding)
Hyperlipidemia
End-stage renal disease treated successfully with renal transplantation in 2014
Recurrent UTIs maintained on doxycycline
Bilateral renal cell carcinoma status post bilateral nephrectomy
Appendectomy
Cholecystectomy
Modified Whipple-for unusual anatomy that was believed to cause recurrent GI bleeding
Bowel resection (Colon resection for Polyps)
Lipoma on back removal
Prostatectomy 2009
Pancreatectomy
Atelectasis

CT Abdomen/Pelvis (as per radiologist's report):
'TECHNIQUE: CT examination of the abdomen and pelvis was performed without intravenous contrast. Oral contrast was not administered. Coronal and sagittal reformatted images were obtained. Automatic exposure control radiation dose reduction
technology was utilized.
COMPARISON: CT chest from 07/10/2022; abdominal ultrasound from 11/14/2020
FINDINGS:
LOWER CHEST: Heavily calcified aortic valve and [place] coronary arteries. Atelectasis within both lower lobes. No significant pleural effusions. Calcified lymph nodes within the left hilum. Prior median sternotomy.
LIVER: Within normal limits.
GALLBLADDER: Surgically absent.
BILE DUCTS: Within normal limits.
PANCREAS: Multiple clips along the proximal body. No peripancreatic stranding or fluid collections appreciated. Limited evaluation in the absence of IV contrast.
SPLEEN: Contains multiple punctate calcified granulomas.
ADRENALS: Within normal limits.
KIDNEYS/URETERS: Status post bilateral nephrectomies. Renal allograft within the right iliac fossa. No hydronephrosis.
BOWEL: Findings of prior intra-abdominal surgeries. There appears to be a [id number] anastomosis within the left midabdomen. Extensive colonic diverticulosis. No evidence for small bowel obstruction or internal hernia.
PERITONEUM: No ascites or free air.
REPRODUCTIVE: Surgically absent prostate gland.
BLADDER: Within normal limits.
VESSELS: Non-aneurysmal abdominal aorta.
RETROPERITONEUM: No retroperitoneal or pelvic lymphadenopathy.
ABDOMINAL WALL: Small fat-containing ventral hernia.
BONES: No suspicious osseous lesions. Mild multilevel disc disease within lumbar spine. Mild bilateral hip osteoarthritis.
IMPRESSION:
1. No acute findings appreciated.
2. Multiple prior intra-abdominal surgeries. No gross evidence for obstruction or internal hernia.
3. No peripancreatic fluid collections or stranding. Limited evaluation of the pancreas in the absence of IV contrast.
4. Status post bilateral nephrectomies. Renal allograft within the right iliac fossa. No hydronephrosis.
5. Additional findings above.'
Condition: Good
Diet: Low Fat, Low Cholesterol, 2 Gram Sodium and Diabetic, Carb Controlled
Activity: No strenuous activity
Activity Restrictions/Additional Instructions:
Please review with your outpatient primary care provider when you can go back to strenuous activities at the gym.
Your glucose numbers were actually very good in the hospital; please review with your primary care provider if and when you should resume your Metformin and Glipizide as these medications can also cause pancreatitis, and glipizide can also cause
hypoglycemia.
Several of your medications can cause acute pancreatitis. You can continue them for now. But you will need to review all of your medications and your hospitalization with pancreatitis 11/16/24 to 11/17/24 with your specialists at [facility] Medicine, including but not limited to gastroenterology and the surgeons involved in Whipple surgery.
Referrals:
Darek Dallas, [Family Provider, Family Practice] - in less than 1 week
Referral Note: Hospitalization follow-up for acute pancreatitis
Prescriptions:
Continued
cinacalcet 30 MG tablet
30 mg PO DAILY@1200
prednisone 5 MG tablet
5 mg PO DAILY
mycophenolate mofetil 500 MG tablet
250 mg PO BID
tacrolimus 0.5 MG capsule
0.5 mg PO BID
Niaminicide Tab
500 mg PO DAILY
famotidine 20 MG tablet
20 mg PO QPM
potassium citrate 10 mEq (1,080 mg) Tablet Extended Release
10 meq PO BID
aspirin 81 mg Tablet,Chewable
81 mg PO DAILY Qty: 0 0RF
atorvastatin [Lipitor] 20 mg Tablet
20 mg PO QPM
carvedilol [Coreg] 12.5 mg Tablet
12.5 mg PO BID
clonazepam 0.5 mg Tablet
1.5 mg PO HS
Digestive Advantage Immune 250 million cell Tablet,Chewable
250 mmu cells PO Q48H
magnesium citrate 125 mg Capsule
400 mg PO BID
Lokelma 10 gram Powder In Packet
10 g PO Q48H@2200
ferrous sulfate 325 mg (65 mg iron) Tablet
325 mg PO QPM
azelastine 137 mcg (0.1 %) [place],Non-Aerosol
1 spray INTRANASAL BIDPRN PRN (Reason: alleriges)
doxycycline hyclate 100 mg Tablet
100 mg PO DAILY@1200
Held
glipizide 5 mg Tablet Extended Release 24hr
5 mg PO BID@1700,2200
Hold Instructions: Resume on 11/24/24. Ask your primary care provider when to resume this medication.
metformin 500 mg Tablet Extended Release 24 Hr
500 mg PO BID
Hold Instructions: Resume on 11/24/24. Ask your primary care provider when you should resume this medication.
Discharge Orders:
Discharge Patient (As Directed); Ordered 11/17/24
Ordered By: Arsh Chaudhary
Discharge Date and Time
Discharge Date/Time: 11/17/24 15:13
Print Language: TONGAN
--- NOTE | 2024-11-17 15:13 | PTCARENOTE ---
pt denies pain, tolerating low fat diet, independent, vss, for discharge to home today
--- NOTE | 2024-11-17 15:14 | PTCARENOTE ---
pt refused IS and am lab troponin levels, despite being told benefits and risks. Dr. Chaudhary was made aware.
== END 2024-11-17 15:13 | disposition home or self-care (01) ==
LOC: 3 WEST ACU 19:50
PROVIDERS: ADMITTING PHYSICIAN Hospitalist; CONSULT PHYSICIAN Internal Medicine; EMERGENCY PHYSICIAN Student in an Organized Health Care Education/Training Program; FAMILY PHYSICIAN Family Medicine
DX: R10.10 Upper abdominal pain, unspecified (principal); E11.9 Type 2 diabetes mellitus without complications; I10 Essential (primary) hypertension; I25.10 Atherosclerotic heart disease of native coronary artery without angina pectoris; Z79.899 Other long term (current) drug therapy; Z87.440 Personal history of urinary (tract) infections; Z86.79 Personal history of other diseases of the circulatory system; I25.2 Old myocardial infarction; Z86.73 Personal history of transient ischemic attack (TIA), and cerebral infarction without residual deficits; Z87.891 Personal history of nicotine dependence; Z79.82 Long term (current) use of aspirin; N17.9 Acute kidney failure, unspecified; J98.11 Atelectasis
CPT/HCPCS: 74176; 80053; 82962; 83036; 83690; 83735; 84484; 85025; 85027; 93005; 96360; 99285; G0378